=== PATIENT | male | born 1970 | race Two or more races ===

== ENCOUNTER 2016-03-19 19:13 | Inpatient (IN) | payer OTHER ==
[2016-03-19 20:18] VITALS: BMI 32.4
[2016-03-19] MEDS ORDERED: ALBUTEROL SO4 0.083% IH SOL 2.5 MG/3 ML VIAL.NEB. NEB ONE ×2 (20:51→23:46)
[2016-03-19] MEDS ORDERED: IPRATROPIUM BR 0.02% 0.5 MG/2.5 ML VIAL.NEB. NEB ONE (20:51)
[2016-03-19] MEDS ORDERED: ALBUTEROL SO4 2.5/IPRATROPIUM 0.5 INH SOL 3 ML VIAL.NEB. NEB ONE (21:29)
[2016-03-19] MEDS ORDERED: AZITHROMYCIN 250 MG TABLET (FP) PO ONE (22:30)
[2016-03-19] MEDS ORDERED: predniSONE 20 MG TABLET (UD) PO ONE (22:35)
[2016-03-19] MEDS ORDERED: AZITHROMYCIN 250 MG TABLET (FP) ONE (23:28)
[2016-03-19] MEDS ORDERED: predniSONE 20 MG TABLET (UD) ONE (23:28)
--- NOTE | 2016-03-19 23:46 | PDOC ---
History of Present Illness - General History Source: Patient Exam Limitations: No Limitations <Brenton Pulido - Last Filed: 03/20/16 01:36> - General History Source: Patient Exam Limitations: No Limitations - History of Present Illness Initial Comments: 03/19/16 23:52 The patient is a 45 year old male, with a significant past medical history of asthma and diabetes, who presents to the emergency department with asthma exacerbation and cough for the past 2 weeks. He reports that his asthma is usually worsened in the winter months. He notes that his cough is productive of a white/yellow sputum. He also notes that he has been using albuterol at home without any relieve of his symptoms. He reports that he saw his PMD on 03/11/2016 and was given steroids, without any relief of his symptoms. His PMD referred him to [facility] [place] to get a work up. He denies any recent travel or sick contacts. The patient denies chest pain, headache and dizziness. Denies fever, chills, nausea, vomit, diarrhea and constipation. Allergies: None Past surgical history: None reported Social history: No alcohol, tobacco or drug use reported PMD - Dr. Sally Cee <Juarez Julien - Last Filed: 03/20/16 01:41> - General Chief Complaint: Asthma Stated Complaint: ASTHMA Time Seen by Provider: 03/19/16 20:50 Past History - Past Medical History Asthma: Yes Diabetes: Yes (NIDDM) - Immunization History Immunization Up to Date: Yes - Psycho/Social/Smoking Cessation Hx Anxiety: No Suicidal Ideation: No Smoking Status: No Smoking History: Never smoked Have you smoked in the past 12 months: No Number of Cigarettes Smoked Daily: 0 Information on smoking cessation initiated: No Hx Alcohol Use: No Drug/Substance Use Hx: No Substance Use Type: None <Brenton Pulido - Last Filed: 03/20/16 01:36> <Juarez Julien - Last Filed: 03/20/16 01:41> - Past Medical History Allergies/Adverse Reactions: Allergies Allergy/AdvReac Type Severity Reaction Status Date / Time No Known Drug Allergies Allergy Verified 03/19/16 20:14 Home Medications: Ambulatory Orders Albuterol Sulfate Inhaler - [Ventolin HFA Inhaler -] 1 - 2 inh IH QID #1 inhaler 02/21/12 Glipizide [Glipizide ER] 10 mg PO DAILY 02/21/12 Lisinopril [Prinivil] 5 mg PO DAILY 02/21/12 Montelukast Na [Singulair -] 10 mg PO HS 02/21/12 Atorvastatin Ca [Lipitor] 10 mg PO HS 08/02/15 Budesonide/Formeterol Fumarate [SYMBICORT 160/4.5mcg -] 2 inh PO BID 08/02/15 Metformin HCl 850 mg PO BID 08/02/15 Prednisone [Deltasone -] 60 mg PO DAILY #12 tablet 08/02/15 Review of Systems - Review of Systems Able to Perform ROS?: Yes Comments:: 03/19/16 23:52 GENERAL/CONSTITUTIONAL: No fever or chills. No weakness. HEAD, EYES, EARS, NOSE AND THROAT: No change in vision. No ear pain or discharge. No sore throat. CARDIOVASCULAR: +Shortness of breath. No chest pain RESPIRATORY: +Cough. No wheezing, or hemoptysis. GASTROINTESTINAL: No nausea, vomiting, diarrhea or constipation. GENITOURINARY: No dysuria, frequency, or change in urination. MUSCULOSKELETAL: No joint or muscle swelling or pain. No neck or back pain. SKIN: No rash NEUROLOGIC: No headache, vertigo, loss of consciousness, or change in strength/ sensation. ENDOCRINE: No increased thirst. No abnormal weight change HEMATOLOGIC/LYMPHATIC: No anemia, easy bleeding, or history of blood clots. ALLERGIC/IMMUNOLOGIC: No hives or skin allergy. <Juarez Julien - Last Filed: 03/20/16 01:41> *Physical Exam - Vital Signs Last Vital Signs Temp Pulse Resp BP Pulse Ox 98.6 F 113 H 16 129/84 95 03/19/16 20:14 03/19/16 20:14 03/19/16 20:14 03/19/16 20:14 03/19/16 20:14 <Brenton Pulido - Last Filed: 03/20/16 01:36> - Vital Signs Last Vital Signs Temp Pulse Resp BP Pulse Ox 98.6 F 113 H 16 129/84 95 03/19/16 20:14 03/19/16 20:14 03/19/16 20:14 03/19/16 20:14 03/19/16 20:14 - Physical Exam Comments: 03/19/16 23:52 GENERAL: Awake, alert, and fully oriented, in no acute distress HEAD: No signs of trauma, normocephalic, atraumatic EYES: PERRLA, EOMI, sclera anicteric, conjunctiva clear ENT: Auricles normal inspection, hearing grossly normal, nares patent, oropharynx clear without exudates. Moist mucosa NECK: Normal ROM, supple, no lymphadenopathy, JVD, or masses LUNGS: +Bilateral expiratory wheezing but speaking full sentences. No distress. HEART: Regular rate and rhythm, normal S1 and S2, no murmurs, rubs or gallops, peripheral pulses normal and equal bilaterally. ABDOMEN: Soft, nontender, normoactive bowel sounds. No guarding, no rebound. No masses EXTREMITIES: Normal inspection, Normal range of motion, no edema. No clubbing or cyanosis. NEUROLOGICAL: Cranial nerves II through XII grossly intact. Normal speech, normal gait, no focal sensorimotor deficits SKIN: Warm, Dry, normal turgor, no rashes or lesions noted. <Juarez Julien - Last Filed: 03/20/16 01:41> ED Treatment Course - LABORATORY CBC & Chemistry Diagram: 03/20/16 00:10 03/20/16 00:10 - Medications Given in the ED: ED Medications Discontinued Medications Generic Name Dose Route Start Last Admin Trade Name Freq PRN Reason Stop Dose Admin Albuterol Sulfate 1 amp 03/19/16 20:51 03/19/16 21:33 Ventolin 0.083% Nebulizer Soln - NEB 03/19/16 20:52 1 amp ONCE ONE Administration Ipratropium [place] 1 amp 03/19/16 20:51 03/19/16 21:33 Atrovent 0.02% Nebulizer - NEB 03/19/16 20:52 1 amp ONCE ONE Administration <Brenton Pulido - Last Filed: 03/20/16 01:36> - LABORATORY CBC & Chemistry Diagram: 03/20/16 00:10 03/20/16 00:10 - Medications Given in the ED: ED Medications Discontinued Medications Generic Name Dose Route Start Last Admin Trade Name Freq PRN Reason Stop Dose Admin Albuterol Sulfate 1 amp 03/19/16 20:51 03/19/16 21:33 Ventolin 0.083% Nebulizer Soln - NEB 03/19/16 20:52 1 amp ONCE ONE Administration Azithromycin 500 mg 03/19/16 22:30 03/19/16 23:48 Zithromax - PO 03/19/16 22:31 500 mg ONCE ONE Administration Ipratropium [place] 1 amp 03/19/16 20:51 03/19/16 21:33 Atrovent 0.02% Nebulizer - NEB 03/19/16 20:52 1 amp ONCE ONE Administration Prednisone 60 mg 03/19/16 22:35 03/19/16 23:48 Deltasone - PO 03/19/16 22:36 60 mg ONCE ONE Administration <Juarez Julien - Last Filed: 03/20/16 01:41> Medical Decision Making - Medical Decision Making 03/20/16 00:59 A portion of this note was documented by scribe services under my direction. I have reviewed the details of the note, within reason, and agree with the documentation with the following case summary and management plan written by me. Patient treated in the ED. Nursing notes are reviewed and incorporated into the medical decision-making. Vital signs reviewed. Peripheral IV access obtained by the nurse, laboratory studies are drawn and sent, reviewed and interpreted by myself. Vital Signs Temp Pulse Resp BP Pulse Ox 98.6 F 113 H 16 129/84 95 03/19/16 20:14 03/19/16 20:14 03/19/16 20:14 03/19/16 20:14 03/19/16 20:14 45-year-old male with past medical history of asthma presents to the emergency department for asthma exacerbation. The patient has been ill since the beginning of this month. He's been coughing and wheezing. He had initially seen his primary care physician Dr. Cee who had initially treated him symptomatically. However, the patient continued to have wheezing despite using treatments. The patient clearly has an asthma exacerbation and likely bronchitis. The patient was given numerous episodes of nebulizers and steroids but the patient continued to have persistent wheezing. IV magnesium ordered. Chest xray ordered , but pending official radiology read. No acute findings. Given the persistent wheezing, decision was made to admit the patient to the hospital. 03/20/16 01:36 CBC, BMP 03/20/16 00:10 03/20/16 00:10 CMP Sodium 138 mmol/L (136-145) 03/20/16 00:10 Potassium 3.7 mmol/L (3.5-5.1) 03/20/16 00:10 Chloride 102 mmol/L (98-107) 03/20/16 00:10 Carbon Dioxide 25 mmol/L (21-32) 03/20/16 00:10 Anion Gap 11 (8-16) 03/20/16 00:10 BUN 10 mg/dL (7-18) D 03/20/16 00:10 Creatinine 0.7 mg/dL (0.7-1.3) 03/20/16 00:10 Creat Clearance w eGFR > 60 (>60) 03/20/16 00:10 Random Glucose 101 mg/dL (74-106) D 03/20/16 00:10 Calcium 9.4 mg/dL (8.5-10.1) 03/20/16 00:10 Total Bilirubin 0.5 mg/dL (0.2-1.0) D 03/20/16 00:10 AST 26 U/L (15-37) D 03/20/16 00:10 ALT 52 U/L (12-78) D 03/20/16 00:10 Alkaline Phosphatase 61 U/L (45-117) 03/20/16 00:10 Total Protein 7.8 g/dl (6.4-8.2) 03/20/16 00:10 Albumin 4.3 g/dl (3.4-5.0) 03/20/16 00:[address] Leung. He accepts the patient to med/surg admission. Case discussed in detail with admitting physician including history, physical exam and ancillary studies. Admitting physician has assumed care for the patient, will follow all pending diagnostics and will complete the evaluation and treatment. <Brenton Pulido - Last Filed: 03/20/16 01:36> - Medical Decision Making 03/20/16 01:41 Dr. Zaynab Leung was called regarding the patient at 1:00am and 1:15am. Dr. Leung was consulted regarding the patient at 1:34am [phone] <Juarez Julien - Last Filed: 03/20/16 01:41> *DC/Admit/Observation/Transfer - Discharge Dispostion Admit: Yes <Brenton Pulido - Last Filed: 03/20/16 01:36> - Attestations Scribe Attestion: 03/19/16 23:53 Documentation prepared by Juarez Julien, acting as medical assembly for Brenton Pulido MD. <Juarez Julien - Last Filed: 03/20/16 01:41> Diagnosis at time of Disposition: Asthma exacerbation - Referrals Referrals: Sally Cee MD [Primary Care Provider] -
[2016-03-20 00:16] LABS: BASOPHIL 1.1 % (0-2.0); EOSINOPHIL 18.5 % (0-4.5); MCH 28.1 pg (25.7-33.7); MEAN PLT VOLUME 7.1 fl (7.5-11.1); NEUTROPHILS 42.8 % (42.8-82.8); PLATELET COUNT 422 K/MM3 (134-434); RDW 12.4 % (11.9-15.9); WHITE BLOOD COUNT 7.5 K/mm3 (4.0-10.0)
[2016-03-20 00:40] LABS: ALBUMIN 4.3 g/dl (3.4-5.0); ANION GAP 11 (8-16); BILIRUBIN,TOTAL 0.5 mg/dL (0.2-1.0); CALCIUM 9.4 mg/dL (8.5-10.1); CO2 25 mmol/L (21-32); CREATININE 0.7 mg/dL (0.7-1.3); GLUCOSE,RANDOM 101 mg/dL (74-106); SGOT/AST 26 U/L (15-37); SGPT/ALT 52 U/L (12-78); TOT PROT 7.8 g/dl (6.4-8.2)
[2016-03-20 00:41] LABS: ALK PHOS 61 U/L (45-117)
[2016-03-20] MEDS ORDERED: MAGNESIUM SULF 50% (8.12 MEQ/2 ML-1 GM VIAL) IVPB ONE (00:53)
[2016-03-20] MEDS ORDERED: MAGNESIUM SULF 50% (8.12 MEQ/2 ML-1 GM VIAL) ONE (01:01)
[2016-03-20] MEDS ORDERED: ACETAMINOPHEN 325 MG TABLET (FP) PO PRN (06:41)
[2016-03-20] MEDS: methylPREDNISolone NA SUCC 125 MG/2 ML VIAL IVPB SCH ×4 (07:00→21:45)
[2016-03-20] MEDS ORDERED: ALBUTEROL SO4 2.5/IPRATROPIUM 0.5 INH SOL 3 ML VIAL.NEB. NEB ONE (07:12)
[2016-03-20] MEDS: INSULIN SLIDING SCALE (NOVOLOG) 1 VIAL SQ SCH ×4 (08:00→21:45)
[2016-03-20] MEDS ORDERED: methylPREDNISolone NA SUCC 125 MG/2 ML VIAL ONE (08:19)
[2016-03-20] MEDS ORDERED: INSULIN (NOVOLOG) ASPART 100 UNITS/ML 10ML VIAL ONE ×2 (08:36→21:39)
[2016-03-20] MEDS ORDERED: ALBUTEROL SO4 0.083% IH SOL 2.5 MG/3 ML VIAL.NEB. NEB ONE (09:12)
[2016-03-20] MEDS: ALBUTEROL SO4 0.083% IH SOL 2.5 MG/3 ML VIAL.NEB. NEB SCH ×5 (09:26→22:01)
[2016-03-20] MEDS ORDERED: glipiZIDE 5 MG TABLET (FP) ONE (09:57)
[2016-03-20] MEDS ORDERED: metFORMIN HCL 500 MG TABLET (FP) ONE (09:58)
[2016-03-20] MEDS: HEPARIN NA (PORCINE) 5,000 UNITS/ML 1ML VIAL SQ SCH ×2 (10:00→21:45)
[2016-03-20] MEDS: LISINOPRIL 5 MG TABLET (FP) PO SCH (10:31)
[2016-03-20] MEDS: glipiZIDE-XL 10 MG TAB.ER.24 (FP) PO SCH (10:32)
[2016-03-20] MEDS: BUDESONIDE/FORMETEROL FUMARATE 160/4.5 mcg INHALER IH SCH ×2 (10:32→22:23)
[2016-03-20] MEDS: ACLIDINIUM BROMIDE 400 MCG/INH AERO.POWD IH SCH ×2 (10:32→22:23)
[2016-03-20] MEDS ORDERED: PNEUMOC 13-VAL CONJ-DIP CRM/PF 0.5 ML DISP.SYRIN IM ONE (10:59)
--- NOTE | 2016-03-20 10:59 | HP ---
Admitting History and Physical - Primary Care Physician PCP: Sally Cee I - Admission History of Present Illness: The patient is a 45 year old male, with a significant past medical history of asthma and diabetes, who presents to the emergency department with asthma exacerbation and cough for the past 2 weeks. He reports that his asthma is usually worsened in the winter months. He notes that his cough is productive of a white/yellow sputum. He also notes that he has been using albuterol at home without any relieve of his symptoms. He reports that he saw his PMD on 03/11/2016 and was given steroids, without any relief of his symptoms. His PMD referred him to [facility] [place] to get a work up. He denies any recent travel or sick contacts. The patient denies chest pain, headache and dizziness. Denies fever, chills, nausea, vomit, diarrhea and constipation. Allergies: None Past surgical history: None reported Social history: No alcohol, tobacco or drug use reported PMD - Dr. Sally Cee - Smoking History Smoking history: Never smoked Have you smoked in the past 12 months: No Aproximately how many cigarettes per day: 0 - Alcohol/Substance Use Hx Alcohol Use: No Home Medications - Allergies Allergies/Adverse Reactions: Allergies Allergy/AdvReac Type Severity Reaction Status Date / Time No Known Drug Allergies Allergy Verified 03/19/16 20:14 - Home Medications Home Medications: Ambulatory Orders Albuterol Sulfate Inhaler - [Ventolin HFA Inhaler -] 1 - 2 inh IH QID #1 inhaler 02/21/12 Glipizide [Glipizide ER] 10 mg PO DAILY 02/21/12 Lisinopril [Prinivil] 5 mg PO DAILY 02/21/12 Montelukast Na [Singulair -] 10 mg PO HS 02/21/12 Atorvastatin Ca [Lipitor] 10 mg PO HS 08/02/15 Budesonide/Formeterol Fumarate [SYMBICORT 160/4.5mcg -] 2 inh PO BID 08/02/15 Metformin HCl 850 mg PO BID 08/02/15 Prednisone [Deltasone -] 60 mg PO DAILY #12 tablet 08/02/15 Physical Examination Vital Signs: Vital Signs Temperature 98.3 F 03/20/16 10:52 Pulse Rate 91 H 03/20/16 10:52 Respiratory Rate 18 03/20/16 10:52 Blood Pressure 129/83 03/20/16 10:52 O2 Sat by Pulse Oximetry (%) 96 03/20/16 10:52
[2016-03-20] MEDS ORDERED: PNEUMOCOCCAL 23 VACCINE 0.5 ML VIAL IM ONE (13:45)
--- NOTE | 2016-03-20 13:56 | HP ---
Admitting History and Physical - Primary Care Physician PCP: Sally Cee I - Admission History of Present Illness: The patient is a 45 year old male, with a significant past medical history of asthma and diabetes, who presents to the emergency department with asthma exacerbation and cough for the past 2 weeks. He reports that his asthma is usually worsened in the winter months. He notes that his cough is productive of a white/yellow sputum. He also notes that he has been using albuterol at home without any relieve of his symptoms. He reports that he saw his PMD on 03/11/2016 and was given steroids, without any relief of his symptoms. His PMD referred him to [facility] [place] to get a work up. He denies any recent travel or sick contacts. The patient denies chest pain, headache and dizziness. Denies fever, chills, nausea, vomit, diarrhea and constipation. Allergies: None Past surgical history: None reported Social history: No alcohol, tobacco or drug use reported PMD - Dr. Sally Cee per patient for last week coughing got even worse that he was up the whole night coughing and brings up yellowish spututm so his pmd got a shot and medication but no help in ER zithromax,prednsione,albuterol and magnesium History Source: Patient - Past Medical History Cardiovascular: Yes: HTN Pulmonary: Yes: COPD Endocrine: Yes: Diabetes Mellitus - Smoking History Smoking history: Never smoked Have you smoked in the past 12 months: No Aproximately how many cigarettes per day: 0 - Alcohol/Substance Use Hx Alcohol Use: No Home Medications - Allergies Allergies/Adverse Reactions: Allergies Allergy/AdvReac Type Severity Reaction Status Date / Time No Known Drug Allergies Allergy Verified 03/19/16 20:14 - Home Medications Home Medications: Ambulatory Orders Albuterol Sulfate Inhaler - [Ventolin HFA Inhaler -] 1 - 2 inh IH QID #1 inhaler 02/21/12 Glipizide [Glipizide ER] 10 mg PO DAILY 02/21/12 Lisinopril [Prinivil] 5 mg PO DAILY 02/21/12 Montelukast Na [Singulair -] 10 mg PO HS 02/21/12 Atorvastatin Ca [Lipitor] 10 mg PO HS 08/02/15 Budesonide/Formeterol Fumarate [SYMBICORT 160/4.5mcg -] 2 inh PO BID 08/02/15 Metformin HCl 850 mg PO BID 08/02/15 Review of Systems - Review of Systems Respiratory: reports: Cough, Wheezing Physical Examination Vital Signs: Vital Signs Temperature 98.3 F 03/20/16 10:52 Pulse Rate 91 H 03/20/16 10:52 Respiratory Rate 18 03/20/16 10:52 Blood Pressure 129/83 03/20/16 10:52 O2 Sat by Pulse Oximetry (%) 96 03/20/16 10:52 Constitutional: Yes: Calm Neck: Yes: Trachea Midline Cardiovascular: Yes: Regular Rate and Rhythm, S1, S2 Respiratory: Yes: Rhonchi, Wheezes Gastrointestinal: Yes: Normal Bowel Sounds, Soft Problem List - Problems (1) Asthma exacerbation Assessment/Plan: iv steroids, abx nebulizer singulair Code(s): J45.901 - UNSPECIFIED ASTHMA WITH (ACUTE) EXACERBATION (2) Diabetes Assessment/Plan: [facility] Code(s): E11.9 - TYPE 2 DIABETES MELLITUS WITHOUT COMPLICATIONS Qualifiers: Diabetes mellitus type: type 2 (3) HTN (hypertension) Assessment/Plan: cotninue same meds Code(s): I10 - ESSENTIAL (PRIMARY) HYPERTENSION (4) Hyperlipidemia Assessment/Plan: lipid panel Code(s): E78.5 - HYPERLIPIDEMIA, UNSPECIFIED
[2016-03-20] MEDS ORDERED: INFLUENZA VACCINE 45 MCG/0.5 ML (MDV 16-17) IM ONE (14:00)
[2016-03-20] MEDS ORDERED: PT OWN MED DRAWER 7, Y5N ONE (21:35)
[2016-03-20] MEDS: MONTELUKAST NA 10 MG TABLET PO SCH (21:45)
[2016-03-20] MEDS: ATORVASTATIN CA 10 MG TABLET (FP) PO SCH (21:45)
[2016-03-21] MEDS: ALBUTEROL SO4 0.083% IH SOL 2.5 MG/3 ML VIAL.NEB. NEB SCH ×6 (02:04→23:10)
[2016-03-21] MEDS: methylPREDNISolone NA SUCC 125 MG/2 ML VIAL IVPB SCH (02:42)
[2016-03-21] MEDS ORDERED: PT OWN MED DRAWER 7, Y5N ONE ×7 (05:43→21:29)
[2016-03-21] MEDS: INSULIN SLIDING SCALE (NOVOLOG) 1 VIAL SQ SCH ×4 (07:06→21:39)
[2016-03-21] MEDS ORDERED: INSULIN (NOVOLOG) ASPART 100 UNITS/ML 10ML VIAL ONE ×3 (07:09→21:28)
[2016-03-21] MEDS: glipiZIDE-XL 10 MG TAB.ER.24 (FP) PO SCH (07:43)
--- NOTE | 2016-03-21 07:43 | EKG ---
Test Reason : Blood Pressure : / mmHG Vent. Rate : 086 BPM Atrial Rate : 086 BPM P-R Int : 128 ms QRS Dur : 092 ms QT Int : 388 ms P-R-T Axes : 052 031 053 degrees QTc Int : 464 ms NORMAL SINUS RHYTHM NORMAL ECG NO PREVIOUS ECGS AVAILABLE Confirmed by MARCELLA REINA MD ([id number]) on 03/20/2016 4:35:45 PM Referred By: Confirmed By:MARCELLA REINA MD
--- NOTE | 2016-03-21 08:07 | PN ---
Progress Note, Physician History of Present Illness: feels better - Current Medication List Current Medications: Active Medications Acetaminophen (Tylenol -) 650 mg PO Q4H PRN PRN Reason: FEVER OR PAIN Aclidinium [place] ([place] -) 1 puff IH BID [facility] Last Admin: 03/20/16 22:23 Dose: 1 puff Albuterol Sulfate (Ventolin 0.083% Nebulizer Soln -) 1 amp NEB Q4HPO [facility] Last Admin: 03/21/16 06:50 Dose: 1 amp Atorvastatin Calcium (Lipitor -) 10 mg PO HS [facility] Last Admin: 03/20/16 21:45 Dose: 10 mg Budesonide/Formoterol Fumarate (Symbicort 160/4.5mcg -) 2 puff IH BID [facility] Last Admin: 03/20/16 22:23 Dose: 2 inhaler Glipizide (Glucotrol Xl -) 10 mg PO DAILY@0700 [facility] Last Admin: 03/21/16 07:43 Dose: 10 mg Heparin Sodium (Porcine) (Heparin -) 5,000 unit SQ BID [facility] Last Admin: 03/20/16 21:45 Dose: 5,000 unit Azithromycin 250 mg/ Dextrose 250 mls @ 250 mls/hr IVPB DAILY [facility] Stop: 03/25/16 09:59 Insulin Aspart (Novolog Vial Sliding Scale -) 1 vial SQ ACHS [facility] PRN Reason: Protocol Last Admin: 03/21/16 07:06 Dose: 5 units Lisinopril (Prinivil) 5 mg PO DAILY [facility] Last Admin: 03/20/16 10:31 Dose: 5 mg Metformin HCl (Glucophage -) 850 mg PO BIDAC [facility] Last Admin: 03/21/16 07:05 Dose: 850 mg Methylprednisolone Sodium Succinate (Solu-Medrol -) 125 mg IVPB Q6H-IV [facility] Last Admin: 03/21/16 02:42 Dose: 125 mg Montelukast Sodium (Singulair -) 10 mg PO HS [facility] Last Admin: 03/20/16 21:45 Dose: 10 mg - Objective Vital Signs: Vital Signs Temperature 97.5 F L 03/21/16 06:00 Pulse Rate 94 H 03/21/16 06:00 Respiratory Rate 18 03/21/16 06:00 Blood Pressure 104/58 03/21/16 06:00 O2 Sat by Pulse Oximetry (%) 95 03/20/16 21:00 Cardiovascular: Yes: Regular Rate and Rhythm Respiratory: Yes: Rhonchi, Wheezes Gastrointestinal: Yes: Normal Bowel Sounds, Soft Assessment/Plan - Problems (1) Asthma exacerbation Assessment/Plan: iv steroids--taper to 40 q 6h abx nebulizer singulair Code(s): J45.901 - UNSPECIFIED ASTHMA WITH (ACUTE) EXACERBATION (2) Diabetes Assessment/Plan: metformin and glipizide bgm sliding scale Code(s): E11.9 - TYPE 2 DIABETES MELLITUS WITHOUT COMPLICATIONS Qualifiers: Diabetes mellitus type: type 2 (3) HTN (hypertension) Assessment/Plan: continue same meds Code(s): I10 - ESSENTIAL (PRIMARY) HYPERTENSION (4) Hyperlipidemia Assessment/Plan: lipid panel Code(s): E78.5 - HYPERLIPIDEMIA, UNSPECIFIED
[2016-03-21 08:17] LABS: MCH 28.9 pg (25.7-33.7); MCHC 33.6 g/dl (32.0-35.9); MEAN PLT VOLUME 7.4 fl (7.5-11.1); PLATELET COUNT 388 K/MM3 (134-434); RDW 12.7 % (11.9-15.9); WHITE BLOOD COUNT 6.9 K/mm3 (4.0-10.0)
[2016-03-21 08:38] LABS: CALCIUM 9.5 mg/dL (8.5-10.1); CREATININE 0.7 mg/dL (0.7-1.3)
[2016-03-21] MEDS ORDERED: methylPREDNISolone NA SUCC 40 MG/1 ML VIAL IVPB SCH (09:00)
[2016-03-21] MEDS: LISINOPRIL 5 MG TABLET (FP) PO SCH (09:34)
[2016-03-21] MEDS: HEPARIN NA (PORCINE) 5,000 UNITS/ML 1ML VIAL SQ SCH ×2 (09:34→21:39)
[2016-03-21] MEDS: AZITHROMYCIN IVPB 250 MG in DEXTROSE 5%-WATER - 250 ML IVPB SCH (09:50)
[2016-03-21] MEDS: BUDESONIDE/FORMETEROL FUMARATE 160/4.5 mcg INHALER IH SCH ×2 (12:35→21:39)
[2016-03-21] MEDS: ACLIDINIUM BROMIDE 400 MCG/INH AERO.POWD IH SCH ×2 (12:36→21:39)
--- NOTE | 2016-03-21 13:57 | CONSULT ---
Consult - History of Present Illness History of Present Illness: The patient is a 45 year old male, with a significant past medical history of asthma and diabetes, who presents to the emergency department with asthma exacerbation and cough for the past 2 weeks. He reports that his asthma is usually worsened in the winter months. He notes that his cough is productive of a white/yellow sputum. He also notes that he has been using albuterol at home without any relieve of his symptoms. He reports that he saw his PMD on 03/11/2016 and was given steroids, without any relief of his symptoms. His PMD referred him to [facility] [place] to get a work up. He denies any recent travel or sick contacts. 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 No: AFIB Pulmonary: Yes: COPD. No: O2 Dependent Gastrointestinal: No: Ascites Hepatobiliary: No: Cirrhosis Renal/: No: Renal Failure Heme/Onc: No: Anemia Infectious Disease: No: AIDS Psych: No: Addictions Musculoskeletal: No: Bursitis Rheumatology: No: Fibromyalgia Endocrine: Yes: Diabetes Mellitus - Alcohol/Substance Use Hx Alcohol Use: No - Smoking History Smoking history: Never smoked Have you smoked in the past 12 months: No Aproximately how many cigarettes per day: 0 Home Medications - Allergies Allergies/Adverse Reactions: Allergies Allergy/AdvReac Type Severity Reaction Status Date / Time No Known Drug Allergies Allergy Verified 03/19/16 20:14 - Home Medications Home Medications: Ambulatory Orders Albuterol Sulfate Inhaler - [Ventolin HFA Inhaler -] 1 - 2 inh IH QID #1 inhaler 02/21/12 Glipizide [Glipizide ER] 10 mg PO DAILY 02/21/12 Lisinopril [Prinivil] 5 mg PO DAILY 02/21/12 Montelukast Na [Singulair -] 10 mg PO HS 02/21/12 Atorvastatin Ca [Lipitor] 10 mg PO HS 08/02/15 Budesonide/Formeterol Fumarate [SYMBICORT 160/4.5mcg -] 2 inh PO BID 08/02/15 Metformin HCl 850 mg PO BID 08/02/15 Family Disease History - Family Disease History Family History: Unremarkable Review of Systems - Review of Systems Constitutional: denies: Fever Eyes: denies: Blurred Vision HENT: denies: Difficult Swallowing Neck: denies: Decreased ROM Cardiovascular: denies: Chest Pain Respiratory: reports: Cough, SOB on Exertion, Wheezing. denies: Hemoptysis Gastrointestinal: denies: Abdominal Pain Physical Exam Vital Sings: Vital Signs Temperature 97.7 F 03/21/16 09:28 Pulse Rate 100 H 03/21/16 09:28 Respiratory Rate 20 03/21/16 09:28 Blood Pressure 127/80 03/21/16 09:28 O2 Sat by Pulse Oximetry (%) 93 L 03/21/16 09:15 Constitutional: Yes: Calm Eyes: Yes: EOM Intact HENT: Yes: Normocephalic Neck: Yes: Trachea Midline Cardiovascular: Yes: Regular Rate and Rhythm Respiratory: Yes: CTA Bilaterally Gastrointestinal: Yes: Normal Bowel Sounds Edema: No Neurological: Yes: Alert Labs: CBC, BMP 03/21/16 07:00 03/21/16 07:00 REST REVIEWED Imaging - Results Chest X-ray: Image Reviewed Problem List - Problems (1) Asthma exacerbation Code(s): J45.901 - UNSPECIFIED ASTHMA WITH (ACUTE) EXACERBATION (2) Diabetes Code(s): E11.9 - TYPE 2 DIABETES MELLITUS WITHOUT COMPLICATIONS Qualifiers: Diabetes mellitus type: type 2 Assessment/Plan RESOLVED ACUTE EXACERBATION OF BRONCHIAL ASTHMA HAVE CHANGED STEROIDS TO ORAL PATIENT DOING WELL ON INHALERS WANTS TO GO HOME CHECK PEAK FLOW IF 275 OR GREATER WOULD CONTINUE TREATMENT AN OUTPATIENT WITH CLOSE F/U R YOSI BENNETT
[2016-03-21] MEDS: ATORVASTATIN CA 10 MG TABLET (FP) PO SCH (21:38)
[2016-03-21] MEDS: MONTELUKAST NA 10 MG TABLET PO SCH (21:38)
[2016-03-22] MEDS ORDERED: PT OWN MED DRAWER 7, Y5N ONE ×2 (01:47→09:06)
[2016-03-22] MEDS: ALBUTEROL SO4 0.083% IH SOL 2.5 MG/3 ML VIAL.NEB. NEB SCH ×4 (02:22→14:05)
[2016-03-22] MEDS: INSULIN SLIDING SCALE (NOVOLOG) 1 VIAL SQ SCH ×2 (06:15→12:16)
[2016-03-22] MEDS: glipiZIDE-XL 10 MG TAB.ER.24 (FP) PO SCH (06:15)
[2016-03-22 06:26] VITALS: TEMP 97.9
[2016-03-22] MEDS: LISINOPRIL 5 MG TABLET (FP) PO SCH (09:33)
[2016-03-22] MEDS: BUDESONIDE/FORMETEROL FUMARATE 160/4.5 mcg INHALER IH SCH (09:34)
[2016-03-22] MEDS: ACLIDINIUM BROMIDE 400 MCG/INH AERO.POWD IH SCH (09:34)
[2016-03-22] MEDS: HEPARIN NA (PORCINE) 5,000 UNITS/ML 1ML VIAL SQ SCH (09:34)
[2016-03-22 11:07] VITALS: PULSE 90
[2016-03-22] MEDS: AZITHROMYCIN IVPB 250 MG in DEXTROSE 5%-WATER - 250 ML IVPB SCH (11:13)
--- NOTE | 2016-03-22 12:37 | DS ---
Physical Examination Vital Signs: Vital Signs Temperature 97.9 F 03/22/16 06:00 Pulse Rate 90 03/22/16 11:07 Respiratory Rate 22 03/22/16 06:00 Blood Pressure 116/83 03/22/16 06:00 O2 Sat by Pulse Oximetry (%) 94 L 03/22/16 11:07 Findings/Remarks: FEELS BETTER Cardiovascular: Yes: Regular Rate and Rhythm Respiratory: Yes: Rhonchi Gastrointestinal: Yes: Normal Bowel Sounds, Soft Edema: No Labs: CBC, BMP 03/21/16 07:00 03/21/16 07:00 Discharge Summary Reason For Visit: ASTHMA Current Active Problems Asthma exacerbation (Acute) Diabetes (Acute) HTN (hypertension) (Acute) Hyperlipidemia (Acute) The administrative codes within the [employer] content you are accessing may have as of 12/08/2015. Please contact your IT Dept/Help Desk and request the latest Regulatory release be installed. IT Dept/Help Desk- Please refer to our FAQ page ([email or web address]) or contact [employer] Customer Support at [email or web address] (Acute) Hospital Course: - Problems (1) Asthma exacerbation Assessment/Plan: iv steroids--taper to 40 q 6h---TO PO PREDNISONE DC HOME PF 300-400 abx nebulizer singular Code(s): J45.901 - UNSPECIFIED ASTHMA WITH (ACUTE) EXACERBATION (2) Diabetes Assessment/Plan: metformin and glipizide bgm sliding scale Code(s): E11.9 - TYPE 2 DIABETES MELLITUS WITHOUT COMPLICATIONS Qualifiers: Diabetes mellitus type: type 2 (3) HTN (hypertension) Assessment/Plan: continue same meds Code(s): I10 - ESSENTIAL (PRIMARY) HYPERTENSION (4) Hyperlipidemia Assessment/Plan: lipid panel Code(s): E78.5 - HYPERLIPIDEMIA, UNSPECIFIED Condition: Improved - Instructions Referrals: Sally Cee MD [Primary Care Provider] - 1 Week Disposition: HOME - Home Medications Comprehensive Discharge Medication List: Ambulatory Orders Albuterol Sulfate Inhaler - [Ventolin HFA Inhaler -] 1 - 2 inh IH QID #1 inhaler 02/21/12 Glipizide [Glipizide ER] 10 mg PO DAILY 02/21/12 Lisinopril [Prinivil] 5 mg PO DAILY 02/21/12 Montelukast Na [Singulair -] 10 mg PO HS 02/21/12 Atorvastatin Ca [Lipitor] 10 mg PO HS 08/02/15 Budesonide/Formeterol Fumarate [SYMBICORT 160/4.5mcg -] 2 inh PO BID 08/02/15 Metformin HCl 850 mg PO BID 08/02/15 Azithromycin 250 mg PO DAILY #4 tablet 03/22/16 Prednisone 10 mg PO DAILY #26 tablet 03/22/16
[2016-03-22 14:19] VITALS: BP 156/80
== END 2016-03-22 14:20 | disposition home or self-care (01) | DRG 141 ==
LOC: JER 19:13 → JERBED 03-20 01:43 → J5S 03-20 10:57
PROVIDERS: ADMIT Family Medicine; ATTEND Family Medicine
DX: J45.901 Unspecified asthma with (acute) exacerbation (principal); E11.9 Type 2 diabetes mellitus without complications; E78.5 Hyperlipidemia, unspecified
CPT/HCPCS: 36415; 71020-TC; 80048; 80053; 83036; 85025; 85027; 87804; 90732; 93005; 93010; 94150; 94640; 99285-25; G0008; G0009; J1644; Q2037

== ENCOUNTER 2023-06-11 15:01 | Emergency (ER) | payer OTHER ==
[2023-06-11 15:18] VITALS: BMI 28.9
[2023-06-11 15:34] LABS: BASO % 0.5 % (0-2.0); EOS % 11.3 % (0-4.5); HEMATOCRIT 49.8 % (35.4-49); HEMOGLOBIN 16.9 GM/dL (11.7-16.9); LYMPH % 33.2 % (8-40); MCH 29.4 pg (25.7-33.7); MCHC 33.9 g/dl (32.0-35.9); MEAN CELL VOLUME 86.8 fl (80-96); MEAN PLT VOLUME 6.6 fl (7.5-11.1); PLATELET COUNT 353 10^3/uL (134-434); RBC 5.75 M/mm3 (4.00-5.60); RDW 13.8 % (11.9-15.9); WHITE BLOOD COUNT 7.3 K/mm3 (4.0-10.0)
[2023-06-11 15:54] LABS: CALCIUM 9.2 mg/dL (8.5-10.1)
[2023-06-11 15:55] LABS: ALBUMIN 3.8 g/dl (3.4-5.0); BLOOD UREA NITROGEN 13.8 mg/dL (7-18)
[2023-06-11 15:58] LABS: CREATININE 0.7 mg/dL (0.55-1.3)
[2023-06-11 16:00] LABS: BILIRUBIN,TOTAL 0.4 mg/dL (0.2-1); TOT PROT 7.5 g/dl (6.4-8.2)
[2023-06-11 16:07] VITALS: BP 146/99; PULSE 96; RESP 18; TEMP 98.4
[2023-06-11 16:11] LABS: INR 1.07 (0.83-1.09); PROTHROMBIN TIME (PATIENT) 12.4 SEC (9.7-13.0)
[2023-06-11 16:14] LABS: ACTIVATED PTT 32.1 SECONDS (25.2-36.5)
== END 2023-06-11 16:10 | disposition short-term general hospital (02) ==
LOC: JER 15:01
DX: I24.9 Acute ischemic heart disease, unspecified (principal); R94.31 Abnormal electrocardiogram [ECG] [EKG]; R07.9 Chest pain, unspecified
CPT/HCPCS: 36415; 71045-TC-FY; 80053; 84484; 85025; 85610; 85730; 86850; 86900; 86901; 93005; 93010; 99285-25